=== PATIENT | male | born 1975 | race Caucasian/White ===

== ENCOUNTER → 2022-04-23 | Outpatient (CLI) | payer OTHER ==
[2022-04-23 17:34] LABS: HEMOGLOBIN 13.8 gm/dl (14.0-17.5); RED BLOOD COUNT 4.62 M/UL (4.20-5.50); WHITE BLOOD COUNT 4.5 K/UL (4.5-11.0)
[2022-04-23 18:07] LABS: BUN/CREATININE RATIO 14 (0-10)
== END ==
LOC: LAB 16:26
PROVIDERS: Family Medicine
DX: B18.2 Chronic viral hepatitis C (principal); C76.0 Malignant neoplasm of head, face and neck; D84.9 Immunodeficiency, unspecified; E55.9 Vitamin D deficiency, unspecified; F41.9 Anxiety disorder, unspecified; R55 Syncope and collapse; Z86.2 Personal history of diseases of the blood and blood-forming organs and certain disorders involving the immune mechanism
CPT/HCPCS: 36415; 80053; 84439; 84443; 85025; 86900; 86901

== ENCOUNTER → 2022-04-23 | Outpatient (CLI) | payer OTHER | LOC: KOH-I 15:30 | DX: J01.81 Other acute recurrent sinusitis (principal); J34.2 Deviated nasal septum | CPT/HCPCS: 70486 ==